=== PATIENT | male | born 1975 | race Caucasian/White ===

== ENCOUNTER → 2021-03-25 | Emergency (ER) | payer SELFPAY ==
[~2021-03-25] VITALS: Ht 177.8 cm; Wt 59.1 kg
[~2021-03-25] MED LIST: NITROGLYCERIN SUBLINGUAL 0.4 MG BOTTLE OF 25. SL PRN
[2021-03-25 20:47] VITALS: BP 142/99
--- NOTE | 2021-03-25 20:59 | PHYS DOC ---
Past History Past Surgical History: No Surgical History (MARY LOU PAREKH APRN) General Adult EDM: Chief Complaint: CHEST PAIN HPI: HPI: Patient is a 46-year-old male being seen in the ER for midsternal chest pain that radiates to the left side of his chest that started 5 days ago. Pain is worse with inspiration and movement. He rates it 9 out of 10. He describes it as a tightness. No alleviating factors. Patient arrived via EMS and they administered 325 of aspirin prior to arrival. Patient has a history of an [place], hypertension, hyperlipidemia. He states that his NJ was 4 years ago. He was prescribed nitroglycerin tablets but has ran out no longer takes them. Patient states that he recently moved to the area 7 days ago. He is also reporting shortness of breath and a cough.. He denies any fevers, nausea, vomiting. (MARY LOU PAREKH APRN) Review of Systems: Review of Systems: 14 body systems of the review of systems have been reviewed. See HPI for pertinent positive and negative responses, otherwise all other systems are negative, nonpertinent or noncontributory (MARY LOU PAREKH APRN) Allergies: Allergies: Allergies Uncoded Allergies Type Severity Reaction Last Updated Verified PENICILLIN Allergy Unknown rash 03/25/21 (MARY LOU PAREKH APRN) Physical Exam: PE: Constitutional: Well developed, well nourished, no acute distress, non-toxic appearance. [] HENT: Normocephalic, atraumatic, bilateral external ears normal, oropharynx moist, no oral exudates, nose normal. [] Eyes: PERRL, EOMI, conjunctiva normal, no discharge. [] Neck: Normal range of motion, no stridor Cardiovascular:Heart rate regular rhythm, no murmur, chest pain reproducible with palpation Lungs & Thorax: Bilateral breath sounds clear to auscultation [] Abdomen: Bowel sounds normal, soft, no tenderness, no masses, no pulsatile masses. [] Skin: Warm, dry, no erythema, no rash. [] Back: Normal range of motion Extremities: No tenderness, no cyanosis, no clubbing, ROM intact, no edema. [] Neurologic: Alert and oriented X 3, normal motor function, normal sensory function, no focal deficits noted. [] Psychologic: Affect normal, judgement normal, mood normal. [] (MARY LOU PAREKH APRN) Current Patient Data: Vital Signs: Vital Signs Date Time Temp Pulse Resp B/P (MAP) Pulse Ox O2 Delivery O2 Flow Rate FiO2 03/25/21 20:47 97.8 65 16 142/99 (113) 100 Room Air (MARY LOU PAREKH APRN) EKG: EKG: EKG performed by ER staff at 2101 shows sinus rhythm, no STEMI read by Dr. Sheth[] (MARY LOU PAREKH APRN) Radiology/Procedures: Radiology/Procedures: [] (MARY LOU PAREKH APRN) Heart Score: C/O Chest Pain: Yes HEART Score for Chest Pain: HEART Score for Chest Pain Response (Comments) Value History Slighlty/Non-Suspicious 0 Age < 45 0 Risk Factors >3 Risk Factors or Hx CAD 2 Total 2 Risk Factors: Risk Factors: DM, Current or recent (<one month) smoker, HTN, HLP, family history of CAD, obesity. Risk Scores: Score 0 - 3: 2.5% MACE over next 6 weeks - Discharge Home Score 4 - 6: 20.3% MACE over next 6 weeks - Admit for Clinical Observation Score 7 - 10: 72.7% MACE over next 6 weeks - Early Invasive Strategies (MARY LOU PAREKH APRN) Course & Med Decision Making: Course & Med Decision Making Pertinent Labs and Imaging studies reviewed. (See chart for details) Patient is a 46-year-old male being seen in the ER for chest pain. Chest pain is worse with inspiration and movement. It has been going on for 5 days. Patient has a history of hypertension, high cholesterol, NJ 4 years ago. Patient was given 325 mg of aspirin prior to ER arrival. Work-up in the ER consisted of blood work, EKG, chest x-ray. Patient was given nitroglycerin tablets to help with pain. Patient and his visitor was upset over the Covid visitor policy. He was upset that his brother and [id number] had to wait in the car while he was being seen. Patient was upset and cursing. Patient states that he wants to leave the emergency department. Lab work not resulted at this time. Patient acknowledges the risks of leaving AGAINST MEDICAL ADVICE which includes worsening of his condition and or . AMA papers signed. (MARY LOU PAREKH APRN) Course & Med Decision Making Did not see or evaluate patient. Did not discuss patient with SLITTER SCORER. Agree with SLITTER SCORER's work-up and disposition per note. (RALEIGH SHETH MD) Dragon Disclaimer: Dragon Disclaimer: This electronic medical record was generated, in whole or in part, using a voice recognition dictation system. (MARY LOU PAREKH APRN) Departure Departure: Impression: Primary Impression: Left against medical advice Additional Impression: Chest pain Qualified Codes: R07.1 - Chest pain on breathing Disposition: LEFT AGAINST MEDICAL ADVICE Condition: GUARDED MARY LOU PAREKH APRN Mar 25, 2021 20:59 RALEIGH HSETH MD Mar 25, 2021 21:34
[2021-03-25 21:48] LABS: BASO # 0.1 x10^3/uL (0.0-0.2); BASO % 0 % (0-3); EOS # 0.2 x10^3/uL (0.0-0.7); EOS % 2 % (0-3); HEMATOCRIT 39.1 % (39.0-53.0); HEMOGLOBIN 12.9 g/dL (13.0-17.5); LYMPH # 4.9 x10^3/uL (1.0-4.8); LYMPH % 39 % (24-48); MEAN CORPUSCULAR HEMOGLOBIN 32 pg (25-35); MEAN CORPUSCULAR HGB CONC 33 g/dL (31-37); MEAN CORPUSCULAR VOLUME 98 fL (79-100); MONO % 8 % (0-9); NEUT # 6.6 x10^3uL (1.8-7.7); NEUT % 52 % (31-73); PLATELET COUNT 296 x10^3/uL (140-400); RED BLOOD COUNT 4.01 x10^6/uL (4.30-5.70); RED CELL DISTRIBUTION WIDTH 13.7 % (11.5-14.5); WHITE BLOOD COUNT 12.7 x10^3/uL (4.0-11.0)
[2021-03-25 22:16] LABS: ALBUMIN 3.3 g/dL (3.4-5.0); ALBUMIN/GLOBULIN RATIO 0.9 (1.0-1.7); CALCIUM 8.6 mg/dL (8.5-10.1); CREATININE 0.9 mg/dL (0.7-1.3); GFR 91.3; TOTAL BILIRUBIN 0.3 mg/dL (0.2-1.0); TOTAL PROTEIN 6.8 g/dL (6.4-8.2)
[2021-03-25 22:45] LABS: POTASSIUM 3.6 mmol/L (3.5-5.1)
--- NOTE | 2021-03-25 23:15 | EKG ---
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
== END | disposition left against medical advice (07) ==
LOC: ER 20:42
DX: R07.89 Other chest pain (principal); I10 Essential (primary) hypertension; E78.5 Hyperlipidemia, unspecified
CPT/HCPCS: 36415; 80053; 84484; 85025; 93005; 99284-25